=== PATIENT | female | born 1975 | race Caucasian/White ===

== ENCOUNTER 2023-08-22 16:02 | Inpatient (IN) | payer OTHER, MEDICAID ==
[2023-08-22] MEDS ORDERED: Ondansetron PF 4 MG/2 ML Vial ONE (16:49)
[2023-08-22] MEDS ORDERED: Ipratropium/Albuterol 3 ML NEB ONE (17:08)
[2023-08-22 17:29] LABS: #Basophils 0.1 10x3/uL (0.0-0.2); #Eosinphils 0.3 10x3/uL (0.0-0.5); #Monocytes 0.7 10x3/uL (0.0-1.1); #Neutrophils 7.8 10x3/uL (1.5-8.4); %Basophils 0.6 % (0.0-2.0); %Eosinophils 2.5 % (0.0-6.0); %Lymphocytes 20.1 % (18.0-47.0); %Monocytes 6.1 % (0.0-10.0); %Neutrophils 70.2 % (40.0-75.0); Hematocrit 38.8 % (34.9-44.5); Hemoglobin 12.6 g/dL (12.0-15.5); Mean Corpuscular HGB CONC 32.5 g/dL (32.0-36.0); Mean Corpuscular Hemoglobin 23.6 pg (27.0-33.0); Mean Corpuscular Volume 72.5 fl (81.6-98.3); Mean Platelet Volume 8.3 fl (7.4-10.4); Platelet Count 503 10x3/uL (150-450); Red Blood Cell (RBC) Count 5.35 10x6/uL (3.90-5.03); White Blood Cell (WBC) Count 11.1 10x3/uL (3.5-10.5)
[2023-08-22] MEDS ORDERED: Cefepime 2 GM VIAL ONE (17:29)
[2023-08-22 17:35] LABS: SARS-CoV-2 NAA Rapid Test Not Detected (NotDetected)
[2023-08-22 17:43] LABS: ALT (SGPT) Less than 7 U/L (8-55); AST (SGOT) 18 U/L (5-34); Albumin 3.9 g/dL (3.5-5.0); Alkaline Phosphatase 79 U/L (40-110); Anion Gap 17 mmol/L (10-20); BUN (Urea Nitrogen) 8 mg/dL (7.0-18.7); Bilirubin, Total 0.5 mg/dL (0.2-1.2); Calc. Creatinine Clearance 0 mL/min (70-130); Calcium 8.7 mg/dL (7.8-10.44); Carbon Dioxide 24 mmol/L (22-29); Chloride 101 mmol/L (98-107); Estimated GFR 109; Globulin 3.1 g/dL (2.4-3.5); Glucose 107 mg/dL (70-105); Potassium 3.1 mmol/L (3.5-5.1); Sodium 139 mmol/L (136-145)
[2023-08-22 17:44] LABS: Acetaminophen Less than 10 mcg/mL (10.0-30.0); Alcohol Less than 10.0 mg/dL (Less than 10); Lipase 8 U/L (8-78); Magnesium 1.5 mg/dL (1.6-2.6); Salicylate Less than 8.0 mg/dL (15.0-30.0)
[2023-08-22 17:50] LABS: Troponin I Less than 0.010 ng/mL (< 0.028)
[2023-08-22 17:57] LABS: Platelet Adequacy Comment Appears Increased
[2023-08-22 17:58] LABS: Anisocytosis SLIGHT = 6-15 cells (100X) (0-5/hpf); Microcytosis SLIGHT = 6-15 cells (100X) (0-5/hpf)
[2023-08-22] MEDS ORDERED: Vancomycin 1 GM VIAL ONE (17:59)
[2023-08-22 18:07] LABS: D-Dimer Test 0.41 mg/L FEU (0.19-0.50); Prothrombin Time 10.9 sec (9.5-12.1)
[2023-08-22] MEDS ORDERED: Azithromycin 500 MG VIAL ONE ×2 (19:20→19:24)
[2023-08-22] MEDS ORDERED: Acetaminophen 325 MG TAB PO PRN (20:41)
[2023-08-22] MEDS ORDERED: Sulfameth/Trimethoprim DS 800-160mg TAB PO SCH (21:30)
[2023-08-22 21:41] LABS: Magnesium 1.4 mg/dL (1.6-2.6)
[2023-08-22] MEDS: Potassium Chloride 20 MEQ TAB PO SCH (22:20)
[2023-08-22] MEDS: cefTRIAXone\\ROCEPHIN 1 GM in Sodium Chloride 0.9% 100 ML IVPB SCH (22:20)
[2023-08-23] MEDS: Guaifenesin DM 100-10/5 ML UDCUP PO PRN ×4 (00:06→22:35)
[2023-08-23] MEDS: Potassium Chloride 20 MEQ TAB PO SCH ×2 (00:07→00:09)
[2023-08-23 03:11] LABS: HIV (1/2) Antibody/Antigen Reflxed Confirmation (NonReactive); HIV 1/2 INDEX 591.82 S/CO (<1.00)
[2023-08-23 03:59] LABS: #Basophils 0.1 10x3/uL (0.0-0.2); #Eosinphils 0.1 10x3/uL (0.0-0.5); #Monocytes 0.7 10x3/uL (0.0-1.1); #Neutrophils 10.1 10x3/uL (1.5-8.4); %Basophils 0.4 % (0.0-2.0); %Eosinophils 0.7 % (0.0-6.0); %Lymphocytes 10.1 % (18.0-47.0); %Monocytes 5.3 % (0.0-10.0); Hemoglobin 10.7 g/dL (12.0-15.5); Mean Corpuscular HGB CONC 32.4 g/dL (32.0-36.0); Mean Corpuscular Volume 74.2 fl (81.6-98.3); Mean Platelet Volume 8.3 fl (7.4-10.4); Platelet Count 406 10x3/uL (150-450); RBC Distribution Width 16.2 % (11.5-14.5); Red Blood Cell (RBC) Count 4.45 10x6/uL (3.90-5.03); White Blood Cell (WBC) Count 12.2 10x3/uL (3.5-10.5)
[2023-08-23 04:16] LABS: Anion Gap 16 mmol/L (10-20); BUN (Urea Nitrogen) 5 mg/dL (7.0-18.7); Calc. Creatinine Clearance 195 mL/min (70-130); Calcium 8.1 mg/dL (7.8-10.44); Carbon Dioxide 21 mmol/L (22-29); Chloride 106 mmol/L (98-107); Estimated GFR 113; Glucose 108 mg/dL (70-105); Potassium 3.3 mmol/L (3.5-5.1); Sodium 140 mmol/L (136-145)
[2023-08-23] MEDS ORDERED: Magnesium 2 GM/50 ML(in water) 2 GM in Premix 1 BAG IVPB SCH (05:00)
[2023-08-23] MEDS ORDERED: Potassium Chloride 20 MEQ TAB PO SCH ×2 (05:00→09:00)
[2023-08-23] MEDS ORDERED: Sulfameth/Trimethoprim DS 800-160mg TAB PO SCH (09:00)
[2023-08-23] MEDS: Enoxaparin 40 MG (0.4 mL) SYRINGE SC SCH (09:00)
[2023-08-23] MEDS ORDERED: Electrolyte Replacement Protocol 1 EACH FS SCH (09:15)
[2023-08-23] MEDS ORDERED: Iopamidol 370 76% 100 ML VIAL ONE (10:21)
[2023-08-23] MEDS: Nystatin 500,000 UNITS/5 ML UDCUP SSW SCH ×3 (12:25→21:04)
[2023-08-23] MEDS ORDERED: Furosemide 20 MG TAB PO SCH (21:00)
[2023-08-23] MEDS: Azithromycin 500 MG in Sodium Chloride 0.9% 250 ML 250 ML IVPB SCH (21:03)
[2023-08-23] MEDS: Sulfameth/Trimethoprim DS 800-160mg TAB PO SCH (21:03)
[2023-08-23] MEDS: predniSONE 20 MG TAB PO SCH (21:04)
[2023-08-23] MEDS ORDERED: Promethazine 25 MG TAB PO SCH (22:00)
[2023-08-23] MEDS: cefTRIAXone\\ROCEPHIN 1 GM in Sodium Chloride 0.9% 100 ML IVPB SCH (22:34)
[2023-08-24 03:21] LABS: Campy jejuni + coli by PCR Negative (Negative); STEC Shiga Toxin 1+2 Negative (Negative); Salmonella spp. by PCR Negative (Negative); Shigella spp + EIEC by PCR Negative (Negative)
[2023-08-24 04:15] LABS: #Monocytes 0.2 10x3/uL (0.0-1.1); #Neutrophils 7.6 10x3/uL (1.5-8.4); %Basophils 0.1 % (0.0-2.0); %Lymphocytes 10.7 % (18.0-47.0); %Monocytes 1.7 % (0.0-10.0); Hematocrit 33.5 % (34.9-44.5); Hemoglobin 10.7 g/dL (12.0-15.5); Mean Corpuscular HGB CONC 31.9 g/dL (32.0-36.0); Mean Corpuscular Hemoglobin 23.4 pg (27.0-33.0); Mean Corpuscular Volume 73.1 fl (81.6-98.3); Mean Platelet Volume 8.2 fl (7.4-10.4); Platelet Count 447 10x3/uL (150-450); RBC Distribution Width 16.2 % (11.5-14.5); Red Blood Cell (RBC) Count 4.58 10x6/uL (3.90-5.03); White Blood Cell (WBC) Count 8.8 10x3/uL (3.5-10.5)
[2023-08-24 04:35] LABS: Iron 17 ug/dL (50-170)
[2023-08-24 04:51] LABS: Platelet Adequacy Comment Appears Increased
[2023-08-24 04:51] LABS: Anion Gap 16 mmol/L (10-20); BUN (Urea Nitrogen) 5 mg/dL (7.0-18.7); Calc. Creatinine Clearance 192 mL/min (70-130); Calcium 8.1 mg/dL (7.8-10.44); Carbon Dioxide 23 mmol/L (22-29); Chloride 102 mmol/L (98-107); Estimated GFR 112; Glucose 136 mg/dL (70-105); Iron 19 ug/dL (50-170); Magnesium 1.9 mg/dL (1.6-2.6); Potassium 3.9 mmol/L (3.5-5.1); Sodium 137 mmol/L (136-145)
[2023-08-24 04:52] LABS: Microcytosis SLIGHT = 6-15 cells (100X) (0-5/hpf)
[2023-08-24 05:10] LABS: Iron Binding Capacity, Total 188 mcg/dL (265-497)
[2023-08-24 05:14] LABS: Iron Binding Capacity, Total 191 mcg/dL (265-497)
[2023-08-24 05:50] LABS: Legionella Urinary Ag Negative (Negative); Strep pneumo Urine Ag NEGATIVE (NEGATIVE)
[2023-08-24] MEDS ORDERED: Magnesium 2 GM/50 ML(in water) 2 GM in Premix 1 BAG IVPB SCH (09:00)
[2023-08-24] MEDS: Enoxaparin 40 MG (0.4 mL) SYRINGE SC SCH (09:54)
[2023-08-24] MEDS: Nystatin 500,000 UNITS/5 ML UDCUP SSW SCH ×4 (09:54→20:12)
[2023-08-24] MEDS: predniSONE 20 MG TAB PO SCH ×2 (09:55→20:12)
[2023-08-24] MEDS: Sulfameth/Trimethoprim DS 800-160mg TAB PO SCH ×3 (09:55→20:25)
[2023-08-24] MEDS ORDERED: Sodium Chloride 0.9% 500 ML IV SCH (10:00)
[2023-08-24 10:11] LABS: Actual Bicarbonate (HCO3a) 24.4 mEq/L (22-28); Analyzer IN Cardio CS ICU; Base Excess (BEa) 0.9 mEq/L (-2.0 to +3.0); CO2 Tension 34.8 mmHg (35.0-45.0); Calcium, Ionized (arterial) 1.13 mmol/L (1.12-1.30); Carboxyhemoglobin (COHb) 0.5 gm% (0.0-3.0); Hematocrit-ABG 35 % (36.0-47.0); O2 Tension (PaO2), arterial 57.9 mmHg (80.0-100.0); Potassium - ABG Lab 3.45 mmol/L (3.70-5.30); Puncture Site LBA; pH, Arterial 7.463 (7.35-7.45)
[2023-08-24] MEDS: Ipratropium/Albuterol 3 ML NEB NEB PRN (11:59)
[2023-08-24 14:13] LABS: %CD4 (Helper/Inducer) 0.8 % (30.8-58.5); Absolute CD4 10 /uL (359-1519); Lymphocytes/Gated Cell Count 1.2 x10E3/uL (0.7-3.1); Total Lymphocyte 10 % (Not Estab.); WBC Total Count 12.6 x10E3/uL (3.4-10.8)
[2023-08-24] MEDS: Sodium Chloride 0.9% 1,000 ML IV SCH ×2 (14:20→20:12)
[2023-08-24 14:37] LABS: HIV 1 Antibody Multi-Spot Reactive (Non Reactive); HIV 2 Antibody Multi-Spot Indeterminate (Non Reactive); HIV Multi-spot Interp HIV-1 Positive (.)
[2023-08-24] MEDS: Azithromycin 500 MG in Sodium Chloride 0.9% 250 ML 250 ML IVPB SCH (20:12)
[2023-08-24] MEDS: Ondansetron PF 4 MG/2 ML Vial IVP PRN (21:00)
[2023-08-24] MEDS: cefTRIAXone\\ROCEPHIN 1 GM in Sodium Chloride 0.9% 100 ML IVPB SCH (21:00)
[2023-08-25] MEDS: Benzonatate 100 MG CAP PO PRN ×2 (00:59→08:28)
[2023-08-25 03:24] LABS: #Monocytes 0.3 10x3/uL (0.0-1.1); #Neutrophils 12.2 10x3/uL (1.5-8.4); %Basophils 0.1 % (0.0-2.0); %Monocytes 2.2 % (0.0-10.0); %Neutrophils 91.3 % (40.0-75.0); Hematocrit 32.6 % (34.9-44.5); Hemoglobin 10.8 g/dL (12.0-15.5); Mean Corpuscular HGB CONC 33.1 g/dL (32.0-36.0); Mean Corpuscular Volume 72.4 fl (81.6-98.3); Mean Platelet Volume 8.4 fl (7.4-10.4); Platelet Count 449 10x3/uL (150-450); RBC Distribution Width 16.1 % (11.5-14.5); White Blood Cell (WBC) Count 13.4 10x3/uL (3.5-10.5)
[2023-08-25 04:30] LABS: Anion Gap 15 mmol/L (10-20); BUN (Urea Nitrogen) 7 mg/dL (7.0-18.7); Calc. Creatinine Clearance 202 mL/min (70-130); Calcium 8.1 mg/dL (7.8-10.44); Carbon Dioxide 20 mmol/L (22-29); Chloride 104 mmol/L (98-107); Estimated GFR 114; Glucose 120 mg/dL (70-105); Magnesium 1.9 mg/dL (1.6-2.6); Potassium 3.9 mmol/L (3.5-5.1); Sodium 135 mmol/L (136-145)
[2023-08-25] MEDS: Sodium Chloride 0.9% 1,000 ML IV SCH (05:33)
[2023-08-25] MEDS ORDERED: Magnesium 2 GM/50 ML(in water) 2 GM in Premix 1 BAG IVPB SCH (06:00)
[2023-08-25] MEDS: predniSONE 20 MG TAB PO SCH ×2 (08:27→20:40)
[2023-08-25] MEDS: Enoxaparin 40 MG (0.4 mL) SYRINGE SC SCH (08:27)
[2023-08-25] MEDS: Nystatin 500,000 UNITS/5 ML UDCUP SSW SCH ×4 (08:31→20:39)
[2023-08-25] MEDS: Sulfameth/Trimethoprim DS 800-160mg TAB PO SCH ×3 (09:00→20:39)
[2023-08-25] MEDS: Azithromycin 500 MG in Sodium Chloride 0.9% 250 ML 250 ML IVPB SCH (20:39)
[2023-08-25] MEDS: cefTRIAXone\\ROCEPHIN 1 GM in Sodium Chloride 0.9% 100 ML IVPB SCH (21:03)
[2023-08-26 03:57] LABS: #Monocytes 0.5 10x3/uL (0.0-1.1); #Neutrophils 14.2 10x3/uL (1.5-8.4); %Basophils 0.1 % (0.0-2.0); %Eosinophils 0.1 % (0.0-6.0); %Lymphocytes 3.9 % (18.0-47.0); %Monocytes 3.4 % (0.0-10.0); %Neutrophils 91.6 % (40.0-75.0); Hematocrit 32.8 % (34.9-44.5); Hemoglobin 10.8 g/dL (12.0-15.5); Mean Corpuscular HGB CONC 32.9 g/dL (32.0-36.0); Mean Corpuscular Hemoglobin 23.9 pg (27.0-33.0); Mean Corpuscular Volume 72.6 fl (81.6-98.3); Mean Platelet Volume 8.3 fl (7.4-10.4); Platelet Count 513 10x3/uL (150-450); RBC Distribution Width 16.4 % (11.5-14.5); Red Blood Cell (RBC) Count 4.52 10x6/uL (3.90-5.03); White Blood Cell (WBC) Count 15.5 10x3/uL (3.5-10.5)
[2023-08-26 04:19] LABS: Microcytosis SLIGHT = 6-15 cells (100X) (0-5/hpf); Ovalocytes SLIGHT = 2-5 cells (100X) (0-1/hpf)
[2023-08-26 04:20] LABS: Platelet Adequacy Comment Appears Increased
[2023-08-26 04:21] LABS: Anion Gap 15 mmol/L (10-20); BUN (Urea Nitrogen) 9 mg/dL (7.0-18.7); Calc. Creatinine Clearance 195 mL/min (70-130); Calcium 8.2 mg/dL (7.8-10.44); Carbon Dioxide 20 mmol/L (22-29); Chloride 103 mmol/L (98-107); Estimated GFR 113; Glucose 114 mg/dL (70-105); Magnesium 1.8 mg/dL (1.6-2.6); Potassium 3.8 mmol/L (3.5-5.1); Sodium 134 mmol/L (136-145)
[2023-08-26] MEDS ORDERED: Magnesium 2 GM/50 ML(in water) 2 GM in Premix 1 BAG IVPB SCH (08:00)
[2023-08-26] MEDS: predniSONE 20 MG TAB PO SCH ×2 (08:12→20:39)
[2023-08-26] MEDS: Enoxaparin 40 MG (0.4 mL) SYRINGE SC SCH (08:12)
[2023-08-26] MEDS: Benzonatate 100 MG CAP PO PRN ×2 (08:12→23:26)
[2023-08-26] MEDS: Sulfameth/Trimethoprim DS 800-160mg TAB PO SCH ×3 (08:13→20:41)
[2023-08-26] MEDS: Nystatin 500,000 UNITS/5 ML UDCUP SSW SCH ×4 (08:13→20:39)
[2023-08-26] MEDS: Guaifenesin DM 100-10/5 ML UDCUP PO PRN ×2 (09:36→23:27)
[2023-08-26] MEDS: Azithromycin 500 MG in Sodium Chloride 0.9% 250 ML 250 ML IVPB SCH (20:35)
[2023-08-26 21:13] LABS: Mycoplasma pneumoniae IgG AB 403 U/mL (0-99); Mycoplasma pneumoniae IgM AB Less than 770 U/mL (0-769)
[2023-08-26] MEDS: Ondansetron PF 4 MG/2 ML Vial IVP PRN (21:58)
[2023-08-26] MEDS: cefTRIAXone\\ROCEPHIN 1 GM in Sodium Chloride 0.9% 100 ML IVPB SCH (22:39)
[2023-08-26] MEDS: Micafungin 150 MG in Sodium Chloride 0.9% 100 ML IVPB SCH (23:09)
[2023-08-27 04:08] LABS: Anion Gap 15 mmol/L (10-20); BUN (Urea Nitrogen) 10 mg/dL (7.0-18.7); Calc. Creatinine Clearance 192 mL/min (70-130); Calcium 8.2 mg/dL (7.8-10.44); Carbon Dioxide 21 mmol/L (22-29); Chloride 102 mmol/L (98-107); Estimated GFR 112; Glucose 108 mg/dL (70-105); Magnesium 1.8 mg/dL (1.6-2.6); Potassium 4.1 mmol/L (3.5-5.1); Sodium 134 mmol/L (136-145)
[2023-08-27 04:15] LABS: #Monocytes 0.5 10x3/uL (0.0-1.1); #Neutrophils 12.2 10x3/uL (1.5-8.4); %Basophils 0.1 % (0.0-2.0); %Eosinophils 0.1 % (0.0-6.0); %Monocytes 3.5 % (0.0-10.0); %Neutrophils 91.6 % (40.0-75.0); Hematocrit 32.6 % (34.9-44.5); Hemoglobin 10.9 g/dL (12.0-15.5); Mean Corpuscular HGB CONC 33.4 g/dL (32.0-36.0); Mean Corpuscular Volume 71.6 fl (81.6-98.3); Mean Platelet Volume 8.3 fl (7.4-10.4); Platelet Count 479 10x3/uL (150-450); RBC Distribution Width 16.4 % (11.5-14.5); Red Blood Cell (RBC) Count 4.55 10x6/uL (3.90-5.03); White Blood Cell (WBC) Count 13.4 10x3/uL (3.5-10.5)
[2023-08-27 04:51] LABS: Microcytosis SLIGHT = 6-15 cells (100X) (0-5/hpf); Ovalocytes MODERATE= 6-15 cells (100X) (0-1/hpf)
[2023-08-27 04:52] LABS: Platelet Adequacy Comment Appears Increased
[2023-08-27] MEDS ORDERED: Magnesium 2 GM/50 ML(in water) 2 GM in Premix 1 BAG IVPB SCH (08:00)
[2023-08-27] MEDS: Nystatin 500,000 UNITS/5 ML UDCUP SSW SCH ×4 (08:27→20:03)
[2023-08-27] MEDS: Enoxaparin 40 MG (0.4 mL) SYRINGE SC SCH ×2 (08:27→20:03)
[2023-08-27] MEDS: Sulfameth/Trimethoprim DS 800-160mg TAB PO SCH ×3 (08:28→20:02)
[2023-08-27] MEDS: predniSONE 20 MG TAB PO SCH ×2 (08:28→20:03)
[2023-08-27] MEDS: Guaifenesin DM 100-10/5 ML UDCUP PO PRN ×2 (18:01→21:41)
[2023-08-27] MEDS: Azithromycin 500 MG in Sodium Chloride 0.9% 250 ML 250 ML IVPB SCH (19:19)
[2023-08-27] MEDS: Benzonatate 100 MG CAP PO PRN (21:11)
[2023-08-27] MEDS: cefTRIAXone\\ROCEPHIN 1 GM in Sodium Chloride 0.9% 100 ML IVPB SCH (21:21)
[2023-08-27] MEDS: Ipratropium/Albuterol 3 ML NEB NEB PRN (21:35)
[2023-08-27] MEDS: Micafungin 150 MG in Sodium Chloride 0.9% 100 ML IVPB SCH (21:41)
[2023-08-27] MEDS: Ondansetron PF 4 MG/2 ML Vial IVP PRN (22:04)
[2023-08-27 23:08] LABS: QuantiFERON-TB Gold Plus Indeterminate (Negative)
[2023-08-28 04:31] LABS: #Monocytes 0.4 10x3/uL (0.0-1.1); #Neutrophils 11.6 10x3/uL (1.5-8.4); %Basophils 0.1 % (0.0-2.0); %Eosinophils 0.2 % (0.0-6.0); %Lymphocytes 4.9 % (18.0-47.0); %Monocytes 3.4 % (0.0-10.0); %Neutrophils 90.5 % (40.0-75.0); Hematocrit 33.6 % (34.9-44.5); Hemoglobin 11.1 g/dL (12.0-15.5); Mean Corpuscular Hemoglobin 23.8 pg (27.0-33.0); Mean Corpuscular Volume 72.1 fl (81.6-98.3); Mean Platelet Volume 8.3 fl (7.4-10.4); Platelet Count 494 10x3/uL (150-450); RBC Distribution Width 16.3 % (11.5-14.5); Red Blood Cell (RBC) Count 4.66 10x6/uL (3.90-5.03); White Blood Cell (WBC) Count 12.8 10x3/uL (3.5-10.5)
[2023-08-28 04:44] LABS: Anion Gap 14 mmol/L (10-20); BUN (Urea Nitrogen) 8 mg/dL (7.0-18.7); Calc. Creatinine Clearance 188 mL/min (70-130); Calcium 8.2 mg/dL (7.8-10.44); Carbon Dioxide 22 mmol/L (22-29); Chloride 100 mmol/L (98-107); Estimated GFR 112; Glucose 143 mg/dL (70-105); Magnesium 1.8 mg/dL (1.6-2.6); Potassium 4.3 mmol/L (3.5-5.1); Sodium 132 mmol/L (136-145)
[2023-08-28 05:08] LABS: Elliptocytes MODERATE= 6-15 cells (100X) (0-1/hpf); Microcytosis MODERATE=15-30 cells (100X) (0-5/hpf)
[2023-08-28 05:09] LABS: Platelet Adequacy Comment Appears Increased
[2023-08-28] MEDS ORDERED: Magnesium 2 GM/50 ML(in water) 2 GM in Premix 1 BAG IVPB SCH (08:00)
[2023-08-28] MEDS: Nystatin 500,000 UNITS/5 ML UDCUP SSW SCH ×4 (08:44→20:34)
[2023-08-28] MEDS: Enoxaparin 40 MG (0.4 mL) SYRINGE SC SCH ×2 (08:44→20:34)
[2023-08-28] MEDS: predniSONE 20 MG TAB PO SCH ×2 (08:45→20:34)
[2023-08-28] MEDS: Sulfameth/Trimethoprim DS 800-160mg TAB PO SCH ×3 (08:45→20:33)
[2023-08-28 13:13] LABS: A. flavus Negative (Neg:<1:1); A. fumigatus Negative (Neg:<1:1); A. niger Negative (Neg:<1:1)
[2023-08-28 16:37] LABS: LOG10 HIV-1 RNA 5.769 (.)
[2023-08-28] MEDS: Ipratropium/Albuterol 3 ML NEB NEB PRN (18:49)
[2023-08-28] MEDS: Azithromycin 500 MG in Sodium Chloride 0.9% 250 ML 250 ML IVPB SCH (20:31)
[2023-08-28] MEDS: Benzonatate 100 MG CAP PO PRN (20:34)
[2023-08-28] MEDS: Guaifenesin DM 100-10/5 ML UDCUP PO PRN (20:34)
[2023-08-28] MEDS: cefTRIAXone\\ROCEPHIN 1 GM in Sodium Chloride 0.9% 100 ML IVPB SCH (21:40)
[2023-08-28] MEDS: Micafungin 150 MG in Sodium Chloride 0.9% 100 ML IVPB SCH (22:15)
[2023-08-28] MEDS: Ondansetron PF 4 MG/2 ML Vial IVP PRN (23:38)
[2023-08-28] MEDS ORDERED: Calcium Carbonate 500 MG ChewTAB PO SCH (23:59)
[2023-08-29 04:28] LABS: #Monocytes 0.2 10x3/uL (0.0-1.1); #Neutrophils 7.9 10x3/uL (1.5-8.4); %Eosinophils 0.1 % (0.0-6.0); %Monocytes 2.4 % (0.0-10.0); %Neutrophils 88.9 % (40.0-75.0); Hematocrit 34.8 % (34.9-44.5); Hemoglobin 11.4 g/dL (12.0-15.5); Mean Corpuscular HGB CONC 32.8 g/dL (32.0-36.0); Mean Corpuscular Hemoglobin 23.5 pg (27.0-33.0); Mean Corpuscular Volume 71.6 fl (81.6-98.3); Mean Platelet Volume 8.3 fl (7.4-10.4); Platelet Count 511 10x3/uL (150-450); Red Blood Cell (RBC) Count 4.86 10x6/uL (3.90-5.03); White Blood Cell (WBC) Count 8.9 10x3/uL (3.5-10.5)
[2023-08-29 04:45] LABS: Anion Gap 15 mmol/L (10-20); BUN (Urea Nitrogen) 9 mg/dL (7.0-18.7); Calc. Creatinine Clearance 206 mL/min (70-130); Calcium 8.6 mg/dL (7.8-10.44); Carbon Dioxide 22 mmol/L (22-29); Chloride 99 mmol/L (98-107); Estimated GFR 115; Glucose 142 mg/dL (70-105); Magnesium 1.8 mg/dL (1.6-2.6); Potassium 4.3 mmol/L (3.5-5.1); Sodium 132 mmol/L (136-145)
[2023-08-29 04:46] LABS: Elliptocytes MODERATE= 6-15 cells (100X) (0-1/hpf); Microcytosis MODERATE=15-30 cells (100X) (0-5/hpf); Platelet Adequacy Comment Appears Increased
[2023-08-29] MEDS ORDERED: Magnesium 2 GM/50 ML(in water) 2 GM in Premix 1 BAG IVPB SCH (08:00)
[2023-08-29] MEDS: Enoxaparin 40 MG (0.4 mL) SYRINGE SC SCH ×2 (08:04→20:19)
[2023-08-29] MEDS: predniSONE 20 MG TAB PO SCH (08:05)
[2023-08-29] MEDS: Sulfameth/Trimethoprim DS 800-160mg TAB PO SCH (08:05)
[2023-08-29] MEDS: Nystatin 500,000 UNITS/5 ML UDCUP SSW SCH ×4 (08:05→20:19)
[2023-08-29 11:34] LABS: Reference Lab Name LABCORP
[2023-08-29] MEDS: SULFAMETHOXAZOLE IVPB SCH ×2 (17:33→23:24)
[2023-08-29] MEDS: DEXTROSE 5% IVPB SCH ×2 (17:33→23:24)
[2023-08-29] MEDS: TRIMETHOPRIM IVPB SCH ×2 (17:33→23:24)
[2023-08-29] MEDS: WATER IVPB SCH ×2 (17:33→23:24)
[2023-08-29] MEDS: Guaifenesin DM 100-10/5 ML UDCUP PO PRN (17:38)
[2023-08-29] MEDS: Ipratropium/Albuterol 3 ML NEB NEB PRN (19:12)
[2023-08-29] MEDS: Lopinavir/Ritonavir 200-50mg TAB PO SCH (20:19)
[2023-08-29] MEDS: Benzonatate 100 MG CAP PO PRN (20:19)
[2023-08-30] MEDS: Ipratropium/Albuterol 3 ML NEB NEB PRN ×2 (03:04→18:58)
[2023-08-30 03:52] LABS: #Eosinphils 0.1 10x3/uL (0.0-0.5); #Monocytes 0.4 10x3/uL (0.0-1.1); #Neutrophils 8.6 10x3/uL (1.5-8.4); %Basophils 0.1 % (0.0-2.0); %Eosinophils 1.3 % (0.0-6.0); %Lymphocytes 12.9 % (18.0-47.0); %Monocytes 4.1 % (0.0-10.0); %Neutrophils 80.9 % (40.0-75.0); Hematocrit 36.8 % (34.9-44.5); Hemoglobin 12.3 g/dL (12.0-15.5); Mean Corpuscular HGB CONC 33.4 g/dL (32.0-36.0); Mean Corpuscular Volume 71.7 fl (81.6-98.3); Mean Platelet Volume 8.5 fl (7.4-10.4); Platelet Count 574 10x3/uL (150-450); RBC Distribution Width 15.9 % (11.5-14.5); Red Blood Cell (RBC) Count 5.13 10x6/uL (3.90-5.03); White Blood Cell (WBC) Count 10.7 10x3/uL (3.5-10.5)
[2023-08-30 03:54] LABS: Phosphorus 3.7 mg/dL (2.3-4.7)
[2023-08-30 03:56] LABS: Anion Gap 15 mmol/L (10-20); BUN (Urea Nitrogen) 8 mg/dL (7.0-18.7); Calc. Creatinine Clearance 184 mL/min (70-130); Calcium 8.4 mg/dL (7.8-10.44); Carbon Dioxide 26 mmol/L (22-29); Chloride 97 mmol/L (98-107); Estimated GFR 112; Glucose 96 mg/dL (70-105); Magnesium 1.8 mg/dL (1.6-2.6); Potassium 3.6 mmol/L (3.5-5.1); Sodium 134 mmol/L (136-145)
[2023-08-30] MEDS: TRIMETHOPRIM IVPB SCH ×4 (05:57→23:43)
[2023-08-30] MEDS: WATER IVPB SCH ×4 (05:57→23:43)
[2023-08-30] MEDS: SULFAMETHOXAZOLE IVPB SCH ×4 (05:57→23:43)
[2023-08-30] MEDS: DEXTROSE 5% IVPB SCH ×4 (05:57→23:43)
[2023-08-30] MEDS ORDERED: Magnesium 2 GM/50 ML(in water) 2 GM in Premix 1 BAG IVPB SCH (08:00)
[2023-08-30] MEDS: Enoxaparin 40 MG (0.4 mL) SYRINGE SC SCH ×2 (08:19→20:06)
[2023-08-30] MEDS: Nystatin 500,000 UNITS/5 ML UDCUP SSW SCH ×4 (08:20→20:06)
[2023-08-30] MEDS: predniSONE 20 MG TAB PO SCH (08:20)
[2023-08-30] MEDS: Lopinavir/Ritonavir 200-50mg TAB PO SCH ×2 (08:20→21:39)
[2023-08-30] MEDS: FLUCONAZOLE IVPB SCH (08:23)
[2023-08-30] MEDS: NACL ISO OSM IVPB SCH (08:23)
[2023-08-30] MEDS: Emtricitabine/Tenofovir 200-300 MG TAB PO SCH (08:34)
[2023-08-30] MEDS: Guaifenesin DM 100-10/5 ML UDCUP PO PRN (09:10)
[2023-08-30] MEDS: Benzonatate 100 MG CAP PO PRN ×2 (09:10→23:23)
[2023-08-30] MEDS: Ondansetron PF 4 MG/2 ML Vial IVP PRN (09:40)
[2023-08-30] MEDS ORDERED: TRIMETHOPRIM IVPB SCH (18:15)
[2023-08-30] MEDS ORDERED: WATER IVPB SCH (18:15)
[2023-08-30] MEDS ORDERED: SULFAMETHOXAZOLE IVPB SCH (18:15)
[2023-08-30] MEDS ORDERED: DEXTROSE 5% IVPB SCH (18:15)
[2023-08-30] MEDS ORDERED: Ipratropium/Albuterol 3 ML NEB ONE (18:57)
[2023-08-31] MEDS: Guaifenesin DM 100-10/5 ML UDCUP PO PRN ×4 (04:51→21:16)
[2023-08-31] MEDS: Ondansetron PF 4 MG/2 ML Vial IVP PRN ×3 (04:51→22:00)
[2023-08-31 04:58] LABS: #Eosinphils 0.1 10x3/uL (0.0-0.5); #Monocytes 0.4 10x3/uL (0.0-1.1); #Neutrophils 8.7 10x3/uL (1.5-8.4); %Basophils 0.1 % (0.0-2.0); %Eosinophils 0.8 % (0.0-6.0); %Lymphocytes 10.1 % (18.0-47.0); %Monocytes 3.7 % (0.0-10.0); %Neutrophils 84.6 % (40.0-75.0); Hemoglobin 11.8 g/dL (12.0-15.5); Mean Corpuscular HGB CONC 33.7 g/dL (32.0-36.0); Mean Corpuscular Volume 71.1 fl (81.6-98.3); Mean Platelet Volume 8.6 fl (7.4-10.4); Platelet Count 554 10x3/uL (150-450); Red Blood Cell (RBC) Count 4.92 10x6/uL (3.90-5.03); White Blood Cell (WBC) Count 10.3 10x3/uL (3.5-10.5)
[2023-08-31 05:13] LABS: Anion Gap 15 mmol/L (10-20); BUN (Urea Nitrogen) 8 mg/dL (7.0-18.7); Calc. Creatinine Clearance 177 mL/min (70-130); Calcium 8.1 mg/dL (7.8-10.44); Carbon Dioxide 24 mmol/L (22-29); Chloride 96 mmol/L (98-107); Estimated GFR 111; Glucose 91 mg/dL (70-105); Magnesium 1.9 mg/dL (1.6-2.6); Potassium 3.7 mmol/L (3.5-5.1); Sodium 131 mmol/L (136-145)
[2023-08-31] MEDS: DEXTROSE 5% IVPB SCH ×4 (06:15→23:38)
[2023-08-31] MEDS: TRIMETHOPRIM IVPB SCH ×4 (06:15→23:38)
[2023-08-31] MEDS: SULFAMETHOXAZOLE IVPB SCH ×4 (06:15→23:38)
[2023-08-31] MEDS: WATER IVPB SCH ×4 (06:15→23:38)
[2023-08-31] MEDS: Enoxaparin 40 MG (0.4 mL) SYRINGE SC SCH ×2 (07:43→21:15)
[2023-08-31] MEDS: Benzonatate 100 MG CAP PO PRN ×3 (07:43→21:16)
[2023-08-31] MEDS: predniSONE 20 MG TAB PO SCH (07:43)
[2023-08-31] MEDS: Emtricitabine/Tenofovir 200-300 MG TAB PO SCH (07:43)
[2023-08-31] MEDS ORDERED: Magnesium 2 GM/50 ML(in water) 2 GM in Premix 1 BAG IVPB SCH ×2 (08:00→14:00)
[2023-08-31] MEDS: FLUCONAZOLE IVPB SCH (10:01)
[2023-08-31] MEDS: NACL ISO OSM IVPB SCH (10:01)
[2023-08-31] MEDS: Lopinavir/Ritonavir 200-50mg TAB PO SCH ×2 (10:01→21:15)
[2023-08-31] MEDS: Ipratropium/Albuterol 3 ML NEB NEB PRN (22:14)
[2023-09-01 04:22] LABS: #Monocytes 0.4 10x3/uL (0.0-1.1); #Neutrophils 6.3 10x3/uL (1.5-8.4); %Basophils 0.1 % (0.0-2.0); %Eosinophils 0.4 % (0.0-6.0); %Lymphocytes 10.8 % (18.0-47.0); %Monocytes 5.2 % (0.0-10.0); %Neutrophils 82.8 % (40.0-75.0); Hematocrit 34.6 % (34.9-44.5); Hemoglobin 11.7 g/dL (12.0-15.5); Mean Corpuscular HGB CONC 33.8 g/dL (32.0-36.0); Mean Platelet Volume 8.5 fl (7.4-10.4); Platelet Count 546 10x3/uL (150-450); RBC Distribution Width 15.9 % (11.5-14.5); Red Blood Cell (RBC) Count 4.87 10x6/uL (3.90-5.03); White Blood Cell (WBC) Count 7.6 10x3/uL (3.5-10.5)
[2023-09-01 05:11] LABS: ALT (SGPT) 19 U/L (8-55); AST (SGOT) 16 U/L (5-34); Alkaline Phosphatase 85 U/L (40-110); Anion Gap 15 mmol/L (10-20); BUN (Urea Nitrogen) 8 mg/dL (7.0-18.7); Bilirubin, Total 0.4 mg/dL (0.2-1.2); Calc. Creatinine Clearance 157 mL/min (70-130); Calcium 8.2 mg/dL (7.8-10.44); Carbon Dioxide 23 mmol/L (22-29); Chloride 95 mmol/L (98-107); Estimated GFR 108; Globulin 2.9 g/dL (2.4-3.5); Glucose 139 mg/dL (70-105); Potassium 3.2 mmol/L (3.5-5.1); Protein, Total 5.9 g/dL (6.0-8.3); Sodium 130 mmol/L (136-145)
[2023-09-01] MEDS: DEXTROSE 5% IVPB SCH ×4 (06:18→22:59)
[2023-09-01] MEDS: Potassium Chloride 20 MEQ in Premix 1 BAG IVPB SCH ×2 (06:18→08:47)
[2023-09-01] MEDS: TRIMETHOPRIM IVPB SCH ×4 (06:18→22:59)
[2023-09-01] MEDS: SULFAMETHOXAZOLE IVPB SCH ×4 (06:18→22:59)
[2023-09-01] MEDS: WATER IVPB SCH ×4 (06:18→22:59)
[2023-09-01] MEDS ORDERED: Magnesium 2 GM/50 ML(in water) 2 GM in Premix 1 BAG IVPB SCH (08:00)
[2023-09-01] MEDS: predniSONE 20 MG TAB PO SCH (08:47)
[2023-09-01] MEDS: Enoxaparin 40 MG (0.4 mL) SYRINGE SC SCH ×2 (08:47→21:10)
[2023-09-01] MEDS: Lopinavir/Ritonavir 200-50mg TAB PO SCH ×2 (08:48→21:10)
[2023-09-01] MEDS: Emtricitabine/Tenofovir 200-300 MG TAB PO SCH (08:48)
[2023-09-01] MEDS: Benzonatate 100 MG CAP PO PRN ×2 (08:48→21:12)
[2023-09-01] MEDS: NACL ISO OSM IVPB SCH (09:10)
[2023-09-01] MEDS: FLUCONAZOLE IVPB SCH (09:10)
[2023-09-01] MEDS: Ondansetron PF 4 MG/2 ML Vial IVP PRN (09:36)
[2023-09-01] MEDS ORDERED: ACYCLOVIR 5% TOP SCH (17:00)
[2023-09-01] MEDS: Ipratropium/Albuterol 3 ML NEB NEB PRN (19:40)
[2023-09-01] MEDS: valACYclovir 500 MG TAB PO SCH (21:10)
[2023-09-01] MEDS: Guaifenesin DM 100-10/5 ML UDCUP PO PRN (21:12)
[2023-09-02] MEDS: Ondansetron PF 4 MG/2 ML Vial IVP PRN ×3 (00:53→21:16)
[2023-09-02 03:13] LABS: #Monocytes 0.4 10x3/uL (0.0-1.1); #Neutrophils 5.1 10x3/uL (1.5-8.4); %Eosinophils 0.3 % (0.0-6.0); %Lymphocytes 11.5 % (18.0-47.0); %Monocytes 5.6 % (0.0-10.0); %Neutrophils 81.8 % (40.0-75.0); Hematocrit 36.4 % (34.9-44.5); Hemoglobin 12.1 g/dL (12.0-15.5); Mean Corpuscular HGB CONC 33.2 g/dL (32.0-36.0); Mean Corpuscular Hemoglobin 23.3 pg (27.0-33.0); Mean Corpuscular Volume 70.1 fl (81.6-98.3); Mean Platelet Volume 8.1 fl (7.4-10.4); Platelet Count 585 10x3/uL (150-450); RBC Distribution Width 16.3 % (11.5-14.5); Red Blood Cell (RBC) Count 5.19 10x6/uL (3.90-5.03); White Blood Cell (WBC) Count 6.3 10x3/uL (3.5-10.5)
[2023-09-02 03:25] LABS: Phosphorus 2.9 mg/dL (2.3-4.7)
[2023-09-02 03:27] LABS: Anion Gap 15 mmol/L (10-20); BUN (Urea Nitrogen) 8 mg/dL (7.0-18.7); Calc. Creatinine Clearance 164 mL/min (70-130); Calcium 8.6 mg/dL (7.8-10.44); Carbon Dioxide 24 mmol/L (22-29); Chloride 95 mmol/L (98-107); Estimated GFR 109; Glucose 106 mg/dL (70-105); Potassium 3.8 mmol/L (3.5-5.1); Sodium 130 mmol/L (136-145)
[2023-09-02 04:15] LABS: Anisocytosis MODERATE=16-30 cells (100X) (0-5/hpf); Macrocytosis SLIGHT = 6-15 cells (100X) (0-5/hpf); Microcytosis MODERATE=15-30 cells (100X) (0-5/hpf)
[2023-09-02] MEDS: TRIMETHOPRIM IVPB SCH ×4 (05:23→23:40)
[2023-09-02] MEDS: SULFAMETHOXAZOLE IVPB SCH ×4 (05:23→23:40)
[2023-09-02] MEDS: WATER IVPB SCH ×4 (05:23→23:40)
[2023-09-02] MEDS: DEXTROSE 5% IVPB SCH ×4 (05:23→23:40)
[2023-09-02] MEDS: Enoxaparin 40 MG (0.4 mL) SYRINGE SC SCH ×2 (08:08→21:16)
[2023-09-02] MEDS: predniSONE 20 MG TAB PO SCH (08:08)
[2023-09-02] MEDS: valACYclovir 500 MG TAB PO SCH ×2 (08:08→21:16)
[2023-09-02] MEDS: Emtricitabine/Tenofovir 200-300 MG TAB PO SCH (08:08)
[2023-09-02] MEDS: Lopinavir/Ritonavir 200-50mg TAB PO SCH ×2 (08:21→21:18)
[2023-09-02] MEDS: NACL ISO OSM IVPB SCH (08:21)
[2023-09-02] MEDS: FLUCONAZOLE IVPB SCH (08:21)
[2023-09-02] MEDS ORDERED: PREZCOBIX FS SCH (09:00)
[2023-09-02] MEDS ORDERED: Magnesium 2 GM/50 ML(in water) 2 GM in Premix 1 BAG IVPB SCH (09:00)
[2023-09-02] MEDS ORDERED: DESCOVY PO SCH (09:00)
[2023-09-02] MEDS: Loperamide HCl 2 MG CAP PO PRN (17:06)
[2023-09-02] MEDS: Guaifenesin DM 100-10/5 ML UDCUP PO PRN ×2 (17:28→23:55)
[2023-09-02] MEDS: Ipratropium/Albuterol 3 ML NEB NEB PRN (19:17)
[2023-09-02] MEDS: Vancomycin HCl 125 MG Capsule PO SCH (21:16)
[2023-09-02] MEDS: Benzonatate 100 MG CAP PO PRN (21:16)
[2023-09-03 03:41] LABS: #Eosinphils 0.1 10x3/uL (0.0-0.5); #Monocytes 0.4 10x3/uL (0.0-1.1); #Neutrophils 4.6 10x3/uL (1.5-8.4); %Basophils 0.2 % (0.0-2.0); %Eosinophils 2.2 % (0.0-6.0); %Lymphocytes 13.2 % (18.0-47.0); %Monocytes 6.3 % (0.0-10.0); %Neutrophils 77.4 % (40.0-75.0); Hematocrit 35.2 % (34.9-44.5); Hemoglobin 11.8 g/dL (12.0-15.5); Mean Corpuscular HGB CONC 33.5 g/dL (32.0-36.0); Mean Corpuscular Hemoglobin 23.6 pg (27.0-33.0); Mean Corpuscular Volume 70.5 fl (81.6-98.3); Mean Platelet Volume 8.5 fl (7.4-10.4); Platelet Count 530 10x3/uL (150-450); RBC Distribution Width 16.3 % (11.5-14.5); Red Blood Cell (RBC) Count 4.99 10x6/uL (3.90-5.03); White Blood Cell (WBC) Count 5.9 10x3/uL (3.5-10.5)
[2023-09-03 03:45] LABS: Anion Gap 15 mmol/L (10-20); BUN (Urea Nitrogen) 8 mg/dL (7.0-18.7); Calc. Creatinine Clearance 152 mL/min (70-130); Calcium 8.5 mg/dL (7.8-10.44); Carbon Dioxide 26 mmol/L (22-29); Chloride 94 mmol/L (98-107); Estimated GFR 105; Glucose 96 mg/dL (70-105); Magnesium 1.9 mg/dL (1.6-2.6); Potassium 3.7 mmol/L (3.5-5.1); Sodium 131 mmol/L (136-145)
[2023-09-03 04:08] LABS: Syphilis Antibody Nonreactive (Nonreactive); Syphilis Antibody Index 0.03 S/CO (<1.00 Non-Reactive)
[2023-09-03] MEDS: WATER IVPB SCH ×3 (05:31→18:18)
[2023-09-03] MEDS: TRIMETHOPRIM IVPB SCH ×3 (05:31→18:18)
[2023-09-03] MEDS: SULFAMETHOXAZOLE IVPB SCH ×3 (05:31→18:18)
[2023-09-03] MEDS: DEXTROSE 5% IVPB SCH ×3 (05:31→18:18)
[2023-09-03 05:52] LABS: Anisocytosis SLIGHT = 6-15 cells (100X) (0-5/hpf); Microcytosis SLIGHT = 6-15 cells (100X) (0-5/hpf); Poikilocytosis SLIGHT = 6-15 cells (100X) (0-5/hpf)
[2023-09-03 05:53] LABS: Elliptocytes SLIGHT = 2-5 cells (100X) (0-1/hpf); Ovalocytes SLIGHT = 2-5 cells (100X) (0-1/hpf)
[2023-09-03] MEDS: Ondansetron PF 4 MG/2 ML Vial IVP PRN (08:47)
[2023-09-03] MEDS ORDERED: Magnesium 2 GM/50 ML(in water) 2 GM in Premix 1 BAG IVPB SCH (09:00)
[2023-09-03] MEDS: Vancomycin HCl 125 MG Capsule PO SCH (09:59)
[2023-09-03] MEDS: NACL ISO OSM IVPB SCH (09:59)
[2023-09-03] MEDS: Emtricitabine/Tenofovir 200-300 MG TAB PO SCH (09:59)
[2023-09-03] MEDS: FLUCONAZOLE IVPB SCH (09:59)
[2023-09-03] MEDS: predniSONE 20 MG TAB PO SCH (09:59)
[2023-09-03] MEDS: Enoxaparin 40 MG (0.4 mL) SYRINGE SC SCH ×2 (09:59→20:21)
[2023-09-03] MEDS: valACYclovir 500 MG TAB PO SCH ×2 (09:59→20:21)
[2023-09-03] MEDS: Lopinavir/Ritonavir 200-50mg TAB PO SCH ×2 (09:59→20:21)
[2023-09-03] MEDS: Loperamide HCl 2 MG CAP PO PRN (10:35)
[2023-09-03] MEDS: Guaifenesin DM 100-10/5 ML UDCUP PO PRN (11:29)
[2023-09-03] MEDS: Ipratropium/Albuterol 3 ML NEB NEB PRN (18:50)
[2023-09-03] MEDS: Famotidine 20 MG TAB PO SCH (20:21)
[2023-09-04] MEDS: WATER IVPB SCH ×5 (00:11→23:25)
[2023-09-04] MEDS: TRIMETHOPRIM IVPB SCH ×5 (00:11→23:25)
[2023-09-04] MEDS: DEXTROSE 5% IVPB SCH ×5 (00:11→23:25)
[2023-09-04] MEDS: SULFAMETHOXAZOLE IVPB SCH ×5 (00:11→23:25)
[2023-09-04] MEDS: Guaifenesin DM 100-10/5 ML UDCUP PO PRN ×2 (02:43→23:30)
[2023-09-04] MEDS: Loperamide HCl 2 MG CAP PO PRN ×3 (02:43→21:55)
[2023-09-04 03:48] LABS: #Monocytes 0.5 10x3/uL (0.0-1.1); #Neutrophils 3.3 10x3/uL (1.5-8.4); %Lymphocytes 15.4 % (18.0-47.0); %Monocytes 10.1 % (0.0-10.0); %Neutrophils 73.8 % (40.0-75.0); Hematocrit 34.1 % (34.9-44.5); Hemoglobin 11.3 g/dL (12.0-15.5); Mean Corpuscular HGB CONC 33.1 g/dL (32.0-36.0); Mean Corpuscular Hemoglobin 23.6 pg (27.0-33.0); Mean Corpuscular Volume 71.3 fl (81.6-98.3); Mean Platelet Volume 8.2 fl (7.4-10.4); Platelet Count 441 10x3/uL (150-450); RBC Distribution Width 16.4 % (11.5-14.5); Red Blood Cell (RBC) Count 4.78 10x6/uL (3.90-5.03); White Blood Cell (WBC) Count 4.5 10x3/uL (3.5-10.5)
[2023-09-04 04:00] LABS: Anion Gap 12 mmol/L (10-20); BUN (Urea Nitrogen) 8 mg/dL (7.0-18.7); Calc. Creatinine Clearance 160 mL/min (70-130); Calcium 8.2 mg/dL (7.8-10.44); Carbon Dioxide 27 mmol/L (22-29); Chloride 97 mmol/L (98-107); Estimated GFR 109; Glucose 102 mg/dL (70-105); Magnesium 1.9 mg/dL (1.6-2.6); Potassium 4.2 mmol/L (3.5-5.1); Sodium 132 mmol/L (136-145)
[2023-09-04 04:23] LABS: Anisocytosis SLIGHT = 6-15 cells (100X) (0-5/hpf); Microcytosis SLIGHT = 6-15 cells (100X) (0-5/hpf); Ovalocytes SLIGHT = 2-5 cells (100X) (0-1/hpf); Poikilocytosis MODERATE=16-30 cells (100X) (0-5/hpf)
[2023-09-04 04:24] LABS: Elliptocytes SLIGHT = 2-5 cells (100X) (0-1/hpf); Tear Drops SLIGHT = 2-5 cells (100X) (0-1/hpf)
[2023-09-04 04:26] LABS: Platelet Adequacy Comment Appears Adequate
[2023-09-04] MEDS ORDERED: Magnesium 2 GM/50 ML(in water) 2 GM in Premix 1 BAG IVPB SCH ×2 (07:45→08:00)
[2023-09-04] MEDS: Famotidine 20 MG TAB PO SCH ×2 (07:47→21:39)
[2023-09-04] MEDS: predniSONE 20 MG TAB PO SCH (07:47)
[2023-09-04] MEDS ORDERED: predniSONE 20 MG TAB PO SCH (08:00)
[2023-09-04] MEDS: Vancomycin HCl 125 MG Capsule PO SCH (08:39)
[2023-09-04] MEDS: Enoxaparin 40 MG (0.4 mL) SYRINGE SC SCH ×2 (08:39→21:39)
[2023-09-04] MEDS: Emtricitabine/Tenofovir 200-300 MG TAB PO SCH (08:40)
[2023-09-04] MEDS: Lopinavir/Ritonavir 200-50mg TAB PO SCH ×2 (08:40→21:50)
[2023-09-04] MEDS: valACYclovir 500 MG TAB PO SCH ×2 (08:41→21:51)
[2023-09-04] MEDS: Fluconazole 100 MG TAB PO SCH (08:42)
[2023-09-04] MEDS: Ondansetron PF 4 MG/2 ML Vial IVP PRN ×2 (08:49→23:30)
[2023-09-05 05:41] VITALS: BMI 40.4
[2023-09-05] MEDS: DEXTROSE 5% IVPB SCH ×2 (05:41→12:28)
[2023-09-05] MEDS: SULFAMETHOXAZOLE IVPB SCH ×2 (05:41→12:28)
[2023-09-05] MEDS: TRIMETHOPRIM IVPB SCH ×2 (05:41→12:28)
[2023-09-05] MEDS: WATER IVPB SCH ×2 (05:41→12:28)
[2023-09-05 07:51] LABS: Anion Gap 13 mmol/L (10-20); BUN (Urea Nitrogen) 10 mg/dL (7.0-18.7); Calc. Creatinine Clearance 137 mL/min (70-130); Calcium 8.1 mg/dL (7.8-10.44); Carbon Dioxide 27 mmol/L (22-29); Chloride 96 mmol/L (98-107); Estimated GFR 94; Glucose 111 mg/dL (70-105); Magnesium 1.7 mg/dL (1.6-2.6); Potassium 3.5 mmol/L (3.5-5.1); Sodium 132 mmol/L (136-145)
[2023-09-05 08:03] LABS: #Eosinphils 0.1 10x3/uL (0.0-0.5); #Monocytes 0.5 10x3/uL (0.0-1.1); #Neutrophils 5.1 10x3/uL (1.5-8.4); %Basophils 0.1 % (0.0-2.0); %Lymphocytes 15.6 % (18.0-47.0); %Monocytes 7.7 % (0.0-10.0); %Neutrophils 74.9 % (40.0-75.0); Hematocrit 31.1 % (34.9-44.5); Hemoglobin 10.2 g/dL (12.0-15.5); Mean Corpuscular HGB CONC 32.8 g/dL (32.0-36.0); Mean Corpuscular Hemoglobin 23.7 pg (27.0-33.0); Mean Corpuscular Volume 72.2 fl (81.6-98.3); Mean Platelet Volume 8.6 fl (7.4-10.4); Platelet Count 412 10x3/uL (150-450); RBC Distribution Width 16.7 % (11.5-14.5); Red Blood Cell (RBC) Count 4.31 10x6/uL (3.90-5.03); White Blood Cell (WBC) Count 6.8 10x3/uL (3.5-10.5)
[2023-09-05] MEDS ORDERED: Potassium Chloride 20 MEQ TAB PO SCH (09:00)
[2023-09-05] MEDS ORDERED: Magnesium 2 GM/50 ML(in water) 2 GM in Premix 1 BAG IVPB SCH ×2 (09:00→10:30)
[2023-09-05] MEDS: Enoxaparin 40 MG (0.4 mL) SYRINGE SC SCH ×2 (09:13→21:20)
[2023-09-05] MEDS: valACYclovir 500 MG TAB PO SCH ×2 (09:13→23:50)
[2023-09-05] MEDS: Famotidine 20 MG TAB PO SCH ×2 (09:13→21:19)
[2023-09-05] MEDS: Vancomycin HCl 125 MG Capsule PO SCH (09:13)
[2023-09-05] MEDS: predniSONE 20 MG TAB PO SCH (09:13)
[2023-09-05] MEDS: Emtricitabine/Tenofovir 200-300 MG TAB PO SCH (09:14)
[2023-09-05] MEDS: Loperamide HCl 2 MG CAP PO PRN (09:19)
[2023-09-05] MEDS: Lopinavir/Ritonavir 200-50mg TAB PO SCH ×2 (10:18→23:50)
[2023-09-05] MEDS: Fluconazole 100 MG TAB PO SCH (10:18)
[2023-09-05] MEDS: Ondansetron PF 4 MG/2 ML Vial IVP PRN ×2 (14:23→21:16)
[2023-09-05] MEDS: Sulfameth/Trimethoprim DS 800-160mg TAB PO SCH (21:18)
[2023-09-05] MEDS: Guaifenesin DM 100-10/5 ML UDCUP PO PRN (21:19)
[2023-09-06] MEDS: Ipratropium/Albuterol 3 ML NEB NEB PRN (00:15)
[2023-09-06 06:16] LABS: #Monocytes 0.3 10x3/uL (0.0-1.1); #Neutrophils 3.6 10x3/uL (1.5-8.4); %Lymphocytes 14.2 % (18.0-47.0); %Monocytes 5.9 % (0.0-10.0); %Neutrophils 79.2 % (40.0-75.0); Anion Gap 13 mmol/L (10-20); BUN (Urea Nitrogen) 10 mg/dL (7.0-18.7); Calc. Creatinine Clearance 161 mL/min (70-130); Calcium 8.3 mg/dL (7.8-10.44); Carbon Dioxide 25 mmol/L (22-29); Chloride 99 mmol/L (98-107); Estimated GFR 109; Glucose 146 mg/dL (70-105); Hematocrit 33.2 % (34.9-44.5); Hemoglobin 10.8 g/dL (12.0-15.5); Mean Corpuscular HGB CONC 32.5 g/dL (32.0-36.0); Mean Corpuscular Hemoglobin 23.3 pg (27.0-33.0); Mean Corpuscular Volume 71.6 fl (81.6-98.3); Mean Platelet Volume 8.2 fl (7.4-10.4); Platelet Count 375 10x3/uL (150-450); Potassium 4.4 mmol/L (3.5-5.1); RBC Distribution Width 17.2 % (11.5-14.5); Red Blood Cell (RBC) Count 4.64 10x6/uL (3.90-5.03); Sodium 133 mmol/L (136-145); White Blood Cell (WBC) Count 4.6 10x3/uL (3.5-10.5)
[2023-09-06] MEDS ORDERED: Magnesium 2 GM/50 ML(in water) 2 GM in Premix 1 BAG IVPB SCH (09:00)
[2023-09-06] MEDS: Famotidine 20 MG TAB PO SCH ×2 (09:33→23:44)
[2023-09-06] MEDS: predniSONE 20 MG TAB PO SCH (09:33)
[2023-09-06] MEDS: Vancomycin HCl 125 MG Capsule PO SCH (09:33)
[2023-09-06] MEDS: Sulfameth/Trimethoprim DS 800-160mg TAB PO SCH ×3 (09:33→23:44)
[2023-09-06] MEDS: valACYclovir 500 MG TAB PO SCH ×3 (09:34→23:43)
[2023-09-06] MEDS: Lopinavir/Ritonavir 200-50mg TAB PO SCH ×2 (09:35→23:44)
[2023-09-06] MEDS: Fluconazole 100 MG TAB PO SCH (09:35)
[2023-09-06] MEDS: Emtricitabine/Tenofovir 200-300 MG TAB PO SCH (09:36)
[2023-09-06] MEDS: Enoxaparin 40 MG (0.4 mL) SYRINGE SC SCH ×2 (09:37→23:44)
[2023-09-06] MEDS: Ondansetron PF 4 MG/2 ML Vial IVP PRN (10:04)
[2023-09-07] MEDS: Ondansetron PF 4 MG/2 ML Vial IVP PRN ×2 (00:12→21:18)
[2023-09-07 04:58] LABS: Magnesium 1.9 mg/dL (1.6-2.6)
[2023-09-07] MEDS ORDERED: Magnesium 2 GM/50 ML(in water) 2 GM in Premix 1 BAG IVPB SCH ×2 (09:00→10:30)
[2023-09-07] MEDS: Enoxaparin 40 MG (0.4 mL) SYRINGE SC SCH ×2 (09:37→21:10)
[2023-09-07] MEDS: Vancomycin HCl 125 MG Capsule PO SCH (09:38)
[2023-09-07] MEDS: Famotidine 20 MG TAB PO SCH ×2 (09:38→21:11)
[2023-09-07] MEDS: predniSONE 20 MG TAB PO SCH (09:38)
[2023-09-07] MEDS: Sulfameth/Trimethoprim DS 800-160mg TAB PO SCH ×3 (09:38→21:12)
[2023-09-07] MEDS: Fluconazole 100 MG TAB PO SCH (09:39)
[2023-09-07] MEDS: valACYclovir 500 MG TAB PO SCH ×3 (09:39→21:13)
[2023-09-07] MEDS: Lopinavir/Ritonavir 200-50mg TAB PO SCH ×2 (09:42→21:12)
[2023-09-07] MEDS: Emtricitabine/Tenofovir 200-300 MG TAB PO SCH (09:43)
[2023-09-07] MEDS: Loperamide HCl 2 MG CAP PO PRN ×2 (10:22→22:29)
[2023-09-07] MEDS: Ipratropium/Albuterol 3 ML NEB NEB PRN (19:50)
[2023-09-07] MEDS: Guaifenesin DM 100-10/5 ML UDCUP PO PRN (21:09)
[2023-09-08 06:03] LABS: Anion Gap 14 mmol/L (10-20); BUN (Urea Nitrogen) 15 mg/dL (7.0-18.7); Calc. Creatinine Clearance 144 mL/min (70-130); Calcium 8.3 mg/dL (7.8-10.44); Carbon Dioxide 24 mmol/L (22-29); Chloride 102 mmol/L (98-107); Estimated GFR 100; Glucose 89 mg/dL (70-105); Potassium 4.4 mmol/L (3.5-5.1); Sodium 136 mmol/L (136-145)
[2023-09-08 06:08] LABS: #Eosinphils 0.1 10x3/uL (0.0-0.5); #Monocytes 0.4 10x3/uL (0.0-1.1); #Neutrophils 6.5 10x3/uL (1.5-8.4); %Basophils 0.4 % (0.0-2.0); %Eosinophils 0.7 % (0.0-6.0); %Lymphocytes 13.2 % (18.0-47.0); %Monocytes 5.4 % (0.0-10.0); %Neutrophils 79.3 % (40.0-75.0); Hematocrit 33.8 % (34.9-44.5); Hemoglobin 11.1 g/dL (12.0-15.5); Mean Corpuscular HGB CONC 32.8 g/dL (32.0-36.0); Mean Corpuscular Hemoglobin 24.1 pg (27.0-33.0); Mean Corpuscular Volume 73.3 fl (81.6-98.3); Mean Platelet Volume 8.3 fl (7.4-10.4); Platelet Count 409 10x3/uL (150-450); RBC Distribution Width 18.1 % (11.5-14.5); Red Blood Cell (RBC) Count 4.61 10x6/uL (3.90-5.03); White Blood Cell (WBC) Count 8.2 10x3/uL (3.5-10.5)
[2023-09-08] MEDS: Sulfameth/Trimethoprim DS 800-160mg TAB PO SCH ×3 (09:24→22:07)
[2023-09-08] MEDS: predniSONE 20 MG TAB PO SCH (09:25)
[2023-09-08] MEDS: Famotidine 20 MG TAB PO SCH ×2 (09:25→22:08)
[2023-09-08] MEDS: Vancomycin HCl 125 MG Capsule PO SCH (09:25)
[2023-09-08] MEDS: valACYclovir 500 MG TAB PO SCH ×3 (09:26→22:06)
[2023-09-08] MEDS: Enoxaparin 40 MG (0.4 mL) SYRINGE SC SCH ×2 (09:27→22:06)
[2023-09-08] MEDS: Fluconazole 100 MG TAB PO SCH (09:27)
[2023-09-08] MEDS: Emtricitabine/Tenofovir 200-300 MG TAB PO SCH (09:27)
[2023-09-08] MEDS: Lopinavir/Ritonavir 200-50mg TAB PO SCH ×2 (09:28→22:06)
[2023-09-08] MEDS: Ondansetron PF 4 MG/2 ML Vial IVP PRN (09:34)
[2023-09-08] MEDS: Guaifenesin DM 100-10/5 ML UDCUP PO PRN ×2 (09:52→22:06)
[2023-09-08] MEDS: Benzonatate 100 MG CAP PO PRN (22:07)
[2023-09-08] MEDS: Loperamide HCl 2 MG CAP PO PRN (22:08)
[2023-09-09] MEDS: Famotidine 20 MG TAB PO SCH ×2 (09:31→22:02)
[2023-09-09] MEDS: Enoxaparin 40 MG (0.4 mL) SYRINGE SC SCH ×2 (09:31→22:02)
[2023-09-09] MEDS: predniSONE 20 MG TAB PO SCH (09:31)
[2023-09-09] MEDS: valACYclovir 500 MG TAB PO SCH ×2 (09:32→22:03)
[2023-09-09] MEDS: Sulfameth/Trimethoprim DS 800-160mg TAB PO SCH ×3 (09:32→22:02)
[2023-09-09] MEDS: Vancomycin HCl 125 MG Capsule PO SCH (09:32)
[2023-09-09] MEDS: Lopinavir/Ritonavir 200-50mg TAB PO SCH ×2 (09:33→22:03)
[2023-09-09] MEDS: Emtricitabine/Tenofovir 200-300 MG TAB PO SCH (09:33)
[2023-09-09] MEDS: Fluconazole 100 MG TAB PO SCH (09:35)
[2023-09-09] MEDS: Guaifenesin DM 100-10/5 ML UDCUP PO PRN (14:54)
[2023-09-10] MEDS: Benzonatate 100 MG CAP PO PRN ×2 (00:08→11:25)
[2023-09-10] MEDS: Guaifenesin DM 100-10/5 ML UDCUP PO PRN ×2 (01:58→12:22)
[2023-09-10] MEDS: predniSONE 20 MG TAB PO SCH (09:18)
[2023-09-10] MEDS: Famotidine 20 MG TAB PO SCH (09:19)
[2023-09-10] MEDS: Sulfameth/Trimethoprim DS 800-160mg TAB PO SCH ×2 (09:19→15:37)
[2023-09-10] MEDS: Fluconazole 100 MG TAB PO SCH (09:19)
[2023-09-10] MEDS: Enoxaparin 40 MG (0.4 mL) SYRINGE SC SCH (09:19)
[2023-09-10] MEDS: valACYclovir 500 MG TAB PO SCH (09:19)
[2023-09-10] MEDS: Vancomycin HCl 125 MG Capsule PO SCH (09:19)
[2023-09-10] MEDS: Emtricitabine/Tenofovir 200-300 MG TAB PO SCH (09:20)
[2023-09-10] MEDS: Lopinavir/Ritonavir 200-50mg TAB PO SCH (09:20)
[2023-09-10 18:05] VITALS: BP 120/64; TEMP 97.9
== END 2023-09-10 18:58 | disposition home or self-care (01) | DRG 974 ==
LOC: CSHERS 16:02 → CSHTELE 20:49 → CSHIMCU 08-24 12:33 → CSHTELE 09-04 10:22
PROVIDERS: ADMIT Family Medicine; ATTEND Internal Medicine
PROC: 3E03329 Introduction of Other Anti-infective into Peripheral Vein, Percutaneous Approach (ICD-10-PCS; principal; 2023-08-22)
PROC: 5A0955A Assistance with Respiratory Ventilation, Greater than 96 Consecutive Hours, High Flow/Velocity Cannula (ICD-10-PCS; 2023-08-24)
DX: A41.9 Sepsis, unspecified organism (principal); J96.01 Acute respiratory failure with hypoxia; B20 Human immunodeficiency virus [HIV] disease; B59 Pneumocystosis; B37.0 Candidal stomatitis; E87.1 Hypo-osmolality and hyponatremia; Z68.41 Body mass index [BMI] 40.0-44.9, adult; R64 Cachexia; K62.6 Ulcer of anus and rectum; R65.20 Severe sepsis without septic shock; F32.A Depression, unspecified; I10 Essential (primary) hypertension; K21.9 Gastro-esophageal reflux disease without esophagitis; E87.6 Hypokalemia; D64.9 Anemia, unspecified; Z96.652 Presence of left artificial knee joint; D50.9 Iron deficiency anemia, unspecified; E83.42 Hypomagnesemia; E66.01 Morbid (severe) obesity due to excess calories; A60.1 Herpesviral infection of perianal skin and rectum; B37.9 Candidiasis, unspecified; Z11.52 Encounter for screening for COVID-19; Z98.890 Other specified postprocedural states; Z90.49 Acquired absence of other specified parts of digestive tract; Z88.8 Allergy status to other drugs, medicaments and biological substances; Z79.899 Other long term (current) drug therapy
CPT/HCPCS: 36415; 36600; 71045; 71275; 74177; 80048; 80053; 80307; 82728; 82805; 83540; 83550; 83605; 83615; 83690; 83735; 83880; 84100; 84484; 85025; 85046; 85379; 85610; 85730; 86140; 86361; 86403; 86480; 86606; 86635; 86701; 86702; 86780; 86850; 86900; 86901; 87040; 87070; 87081; 87103; 87205; 87252; 87324; 87385; 87389; 87449; 87497; 87505; 87536; 87807; 87899; 88312; 93005; 93306; 94640; 94760; 94762; 96361; 96365; 96367; 96375; 97139; J0456; J0692; J0696; J1450; J1650; J2248; J2405; J3370; J3475; J3480; J3490; J7030; J7050; J7070; J7512; J7620; Q0169; Q9967